=== PATIENT | female | born 1950 | race Caucasian/White ===

== ENCOUNTER 2017-05-03 13:39 | Emergency (ER) | payer MEDICAID, MEDICARE ==
[~2017-05-03] VITALS: Ht 154.9 cm; Wt 86.9 kg
[~2017-05-03 13:39] MED LIST: AMLO10TA2 PO; CEPH-460 PO; HYDR25TA5 PO; MACR100C2 PO; METO50TA PO; OMEP20TA93 PO; SYMB160A INH; ZOCO40TA PO
[2017-05-03 13:47] VITALS: BP 181/88; PULSE 113; RESP 22; TEMP 97.7; O2SAT 96
[2017-05-03] MEDS ORDERED: SODIUM CHLORIDE 0.9% FLUSH 10 ML FLUSH IVF PRN (14:15)
[2017-05-03] MEDS ORDERED: methylPREDNISolone SOD SUCC 125 MG/2 ML VIAL IV PUSH ONE (14:15)
[2017-05-03] MEDS ORDERED: MOBI15TA PO (14:21)
[2017-05-03 14:24] VITALS: RESP 18; O2SAT 94
[2017-05-03 14:25] VITALS: BP 194/92; PULSE 100; RESP 18; TEMP 98; O2SAT 94
[2017-05-03 14:44] LABS: HEMATOCRIT 45.5 % (35.0-46.0); MEAN CELL VOLUME 90.7 FL (80.0-100.0); MEAN CORPUSCULAR HEMOGLOBIN 30.5 PG (27.0-34.0); MEAN CORPUSCULAR HGB CONC 33.6 % (32.0-36.0); PLATELET COUNT 210 TH/MM3 (150-450); RED BLOOD COUNT 5.02 MIL/MM3 (4.00-5.30); RED CELL DISTRIBUTION WIDTH 12.1 % (11.6-17.2); WHITE BLOOD COUNT 14.9 TH/MM3 (4.0-11.0)
[2017-05-03 14:48] LABS: CHLORIDE 103 MEQ/L (98-107); SODIUM (NA) 135 MEQ/L (136-145)
[2017-05-03 14:53] LABS: ANION GAP 11 MEQ/L (5-15); BICARBONATE 21.2 MEQ/L (21.0-32.0); BLOOD UREA NITROGEN 15 MG/DL (7-18); MAGNESIUM 2.1 MG/DL (1.5-2.5)
[2017-05-03 14:55] LABS: ALT (GPT) 79 U/L (10-53)
[2017-05-03 14:56] LABS: AST (GOT) 111 U/L (15-37); GLOMERULAR FILTRATION RATE 58 ML/MIN (>89); HEMO FLAGS AUTO DIFF
[2017-05-03 14:57] LABS: TOTAL BILIRUBIN ADULT 0.8 MG/DL (0.2-1.0)
[2017-05-03 14:58] LABS: ALKALINE PHOSPHATASE 74 U/L (45-117)
--- NOTE | 2017-05-03 14:58 | RADRPT ---
EXAM DATE/TIME: 05/03/2017 14:27 [place] COMPARISON: CHEST PA & LAT, March 25, 2012, 16:50. INDICATIONS : Short of breath, chest pains MEDICAL HISTORY : Chronic obstructive pulmonary disease. asthma SURGICAL HISTORY : None. ENCOUNTER: Initial ACUITY: 1 day PAIN SCORE: 8/10 LOCATION: Bilateral chest FINDINGS: PA and lateral views of the chest demonstrate the lungs to be symmetrically aerated without evidence of mass, infiltrate or effusion. The cardiomediastinal contours are unremarkable. Osseous structure s are intact. Surgical clips in the right upper abdominal quadrant are characteristic of prior cholec ystectomy. CONCLUSION: No acute cardiopulmonary process. Jeffry Huerta MD on May 03, 2017 at 14:56 Board Certified Radiologist. This report was verified electronically.
[2017-05-03] MEDS: RESP: ALBUTEROL 2.5 MG/IPRATROPIUM 0.5 MG NEB (SCH) INH (15:00)
--- NOTE | 2017-05-03 15:03 | PD ---
HPI Chief Complaint: Respiratory Symptoms Time Seen by Provider: 14:12 Travel History International Travel<30 days: No Contact w/Intl Traveler<30days: No Traveled to known affect area: No History of Present Illness HPI 67 y/o female presents with shortness of breath and general ill feeling with body aches like she has the flu. She states she got the flu shot recently and feels like it caused her symptoms. She denies any other specific complaints at this time. She states she uses her nebulizer 3 times a day usually and that's what she has been doing but she has not given her self one yet today cut she said it didn't help her yesterday. She states she came here given it was not helping. She feels worse when she moves around. She denies other modifying factors. Patient is a poor historian [facility] Past Medical History Arthritis: Yes Asthma: Yes Anxiety: Yes Depression: Yes Heart Rhythm Problems: No Cancer: No Cardiovascular Problems: Yes (htn on meds) High Cholesterol: Yes Chemotherapy: No Chest Pain: No Congestive Heart Failure: No COPD: Yes Diabetes: Yes (Prior to weight loss) Patient Takes Glucophage: No Diminished Hearing: No Endocrine: Yes Gastrointestinal Disorders: No GERD: Yes Genitourinary: No Hepatitis: No Hiatal Hernia: No Hypertension: Yes Immune Disorder: No Implanted Vascular Access Dvce: No Medical other: Yes (ARTHRITIS) Musculoskeletal: No Neurologic: No Psychiatric: No Reproductive: No Respiratory: Yes (asthma) Radiation Therapy: No Sleep Apnea: No Thyroid Disease: No Tetanus Vaccination: < 5 Years PNEUMOCCOCAL Vaccine (Year): 2 ?: Not Menopausal: Yes : 3 Para: 3 Miscarriage: 0 : 0 Past Surgical History Abdominal Surgery: Yes (CHOLECYSTECTOMY) Cholecystectomy: Yes Eye Surgery: Yes (CATARACTS) Genitourinary Surgery: Yes (STENT PLACED 1995) Gynecologic Surgery: Yes (HYSTERECTOMY) Hysterectomy: Yes Other Surgery: Yes (RIGHT WRIST) Social History Alcohol Use: No Tobacco Use: No (QUIT 30 YEARS AGO- SMOKED 1 PPD) Substance Use: No Allergies-Medications (Allergen,Severity, Reaction): Coded Allergies: hydromorphone (Unverified Allergy, Severe, ITCHING, 05/03/17) latex (Unverified Allergy, Severe, RASH, 05/03/17) thiopental (Unverified Allergy, Severe, Swelling, 05/03/17) acetaminophen (Unverified Allergy, Intermediate, itching, 05/03/17) hydrocodone (Unverified Allergy, Intermediate, itching, 05/03/17) morphine (Unverified Allergy, Mild, ITCHING, 05/03/17) Reported Meds & Prescriptions Reported Meds & Active Scripts Active Duoneb (Ipratropium-Albuterol Neb) 0.5-2.5 Mg/3 Ml Neb 1 Nebule INH Q4HR NEB PRN Prednisone 50 Mg Tab 50 Mg PO DAILY 5 Days Reported Mobic (Meloxicam) 15 Mg Tab 15 Mg PO DAILY Symbicort Inh (Budesonide/Formoterol Fumarate) 160-4.5 Mcg/Act Aero 1 Puff INH Q12HR Hydrochlorothiazide 25 Mg Tab 25 Mg PO DAILY Metoprolol Tartrate 50 Mg Tab 50 Mg PO DAILY Zocor (Simvastatin) 40 Mg Tab 40 Mg PO DAILY Amlodipine (Amlodipine Besylate) 10 Mg Tab 10 Mg PO DAILY Omeprazole 20 Mg Tab 20 Mg PO DAILY Review of Systems ROS Limitations: Poor Historian Except as stated in HPI: all other systems reviewed are Neg Physical Exam Exam Limitations: Poor Historian Narrative GENERAL: Well-nourished, well-developed patient. SKIN: Warm and dry. HEAD: Normocephalic and atraumatic. EYES: No injection or drainage. ENT: No nasal drainage noted. NECK: Supple, trachea midline. CARDIOVASCULAR: Regular rate and rhythm RESPIRATORY: Expiratory wheezing bilaterally. No accessory muscle use. GASTROINTESTINAL: Abdomen soft, non-tender, nondistended. NEUROLOGICAL: Awake and alert. Moves all extremities and sensory grossly within normal limits. Normal speech. Data Data Last Documented VS Vital Signs Date Time Temp Pulse Resp B/P (MAP) Pulse Ox O2 Delivery O2 Flow Rate FiO2 05/03/17 16:25 115 18 184/99 (127) 96 05/03/17 15:20 21 05/03/17 14:25 98.0 Room Air heart rate at discharge 99 Orders Orders Chest, Pa & Lat (05/03/17 ) Complete Blood Count With Diff (05/03/17 14:15) Comprehensive Metabolic Panel (05/03/17 14:15) Act Partial Throm Time (Ptt) (05/03/17 14:15) Prothrombin Time / Inr (Pt) (05/03/17 14:15) Magnesium (Mg) (05/03/17 14:15) Influenzae A/B Antigen (05/03/17 14:15) Iv Access Insert/Monitor (05/03/17 14:15) Ecg Monitoring (05/03/17 14:15) Oximetry (05/03/17 14:15) Sodium Chloride 0.9% Flush (Ns Flush) (05/03/17 14:15) Methylprednisolone So Succ Inj (Solumedr (05/03/17 14:15) Albuterol-Ipratropium Neb (Duoneb Neb) (05/03/17 14:15) Lactic Acid Sepsis Protocol (05/03/17 15:20) Blood Culture (05/03/17 15:20) Sodium Chlor 0.9% 1000 Ml Inj (Ns 1000 M (05/03/17 15:30) Ed Discharge Order (05/03/17 16:17) Labs Laboratory Tests Test 05/03/17 14:20 05/03/17 14:50 05/03/17 15:20 White Blood Count 14.9 TH/MM3 Red Blood Count 5.02 MIL/MM3 Hemoglobin 15.3 GM/DL Hematocrit 45.5 % Mean Corpuscular Volume 90.7 FL Mean Corpuscular Hemoglobin 30.5 PG Mean Corpuscular Hemoglobin Concent 33.6 % Red Cell Distribution Width 12.1 % Platelet Count 210 TH/MM3 Mean Platelet Volume 9.5 FL CBC Comment AUTO DIFF Differential Total Cells Counted 100 Neutrophils % (Manual) 36 % Lymphocytes % 49 % Monocytes % 14 % Eosinophils % 1 % Neutrophils # (Manual) 5.4 TH/MM3 Differential Comment FINAL DIFF MANUAL Platelet Estimate NORMAL Platelet Morphology Comment NORMAL Blood Urea Nitrogen 15 MG/DL Creatinine 0.96 MG/DL Random Glucose 126 MG/DL Total Protein 8.4 GM/DL Albumin 4.4 GM/DL Calcium Level 9.2 MG/DL Magnesium Level 2.1 MG/DL Alkaline Phosphatase 74 U/L Aspartate Amino Transf (AST/SGOT) 111 U/L Alanine Aminotransferase (ALT/SGPT) 79 U/L Total Bilirubin 0.8 MG/DL Sodium Level 135 MEQ/L Potassium Level 4.6 MEQ/L Chloride Level 103 MEQ/L Carbon Dioxide Level 21.2 MEQ/L Anion Gap 11 MEQ/L Estimat Glomerular Filtration Rate 58 ML/MIN Prothrombin Time 10.8 SEC Prothromb Time International Ratio 1.0 RATIO Activated Partial Thromboplast Time 26.8 SEC Lactic Acid Level 1.4 mmol/L MDM Medical Decision Making Medical Screen Exam Complete: Yes Emergency Medical Condition: Yes Medical Record Reviewed: Yes (past history confirmed) Interpretation(s) CBC & BMP Diagram 05/03/17 14:20 Total Protein 8.4 H, Albumin 4.4, Calcium Level 9.2, Magnesium Level 2.1, Alkaline Phosphatase 74, Aspartate Amino Transf (AST/SGOT) 111 H, Alanine Aminotransferase (ALT/SGPT) 79 H, Total Bilirubin 0.8 Last 24 hours Impressions Chest X-Ray 05/03/17 0000 Signed Impressions: Service Date/Time: Friday, May 03, 2017 14:27 - CONCLUSION: No acute cardiopulmonary process. Jeffry Huerta MD Differential Diagnosis COPD, pneumothorax, pneumonia, URI, renal failure Narrative Course Will check blood work, chest x-ray and influenza and reevaluate after DuoNeb's and Solu-Medrol Patient has mild leukocytosis with predominant lymphocytes, lactate is normal, other blood work without emergent findings, chest x-ray without signs of pneumonia, patient has improved aeration with only faint wheezing after breathing treatments here.Patient denies any new complaints and states that they are feeling better. Patient happy with care, all questions answered. Patient knows that follow up is incumbent on them and to return to the emergency room immediately if new or worsening symptoms develop. Patient given strict return precautions, vitals reviewed and are normal, 97% on room air, agrees to further workup as an outpatient. Diagnosis Primary Impression: COPD exacerbation Patient Instructions: General Instructions Additional Instructions: return as needed, DuoNeb nebulizer treatment every 4 hours as needed at home, follow with primary Friday, Tylenol as needed for pain, keep blood pressure log Med/Other Pt SpecificInfo: Prescription(s) given Scripts Ipratropium-Albuterol Neb (Duoneb) 0.5-2.5 Mg/3 Ml Neb 1 NEBULE INH Q4HR NEB Y for WHEEZING, #180 NEBULE 0 Refills Prov: Xiao Doran MD 05/03/17 Prednisone (Prednisone) 50 Mg Tab 50 MG PO DAILY for 5 Days, #5 TAB 0 Refills Prov: Xiao Doran MD 05/03/17 Disposition: 01 DISCHARGE HOME Condition: Stable Xiao Doran MD May 03, 2017 15:03
[2017-05-03 15:13] LABS: POTASSIUM 4.6 MEQ/L (3.5-5.1)
[2017-05-03 15:20] VITALS: O2SAT 95
[2017-05-03 15:23] LABS: EOSINOPHILS 1 % (0-4); NEUTROPHIL # MANUAL DIFF 5.4 TH/MM3 (1.8-7.7); PLATELET ESTIMATE SMEAR NORMAL (NORMAL); PLATELET MORPHOLOGY NORMAL (NORMAL); POLYS (SEG NEUTROPHILS) 36 % (16-70); WBC DIFF SAMPLE 100
[2017-05-03 15:24] LABS: SCAN/DIFF FINAL DIFF MANUAL
[2017-05-03] MEDS ORDERED: SODIUM CHLOR 0.9% 1000 ML INJ 1,000 ML IV ONE (15:30)
[2017-05-03 16:01] LABS: APTT (PATIENT) 26.8 SEC (24.3-30.1); PROTHROMBIN TIME - PATIENT 10.8 SEC (9.8-11.6)
[2017-05-03] MEDS ORDERED: PRED50 PO (16:19)
[2017-05-03] MEDS ORDERED: IPRASOL INH (16:19)
[2017-05-03 16:25] VITALS: BP 184/99
== END 2017-05-03 16:44 | disposition home or self-care (01) ==
LOC: PHED 13:39
DX: J44.1 Chronic obstructive pulmonary disease with (acute) exacerbation (principal); D72.829 Elevated white blood cell count, unspecified; R53.81 Other malaise; M79.1 Myalgia; E11.9 Type 2 diabetes mellitus without complications; I10 Essential (primary) hypertension; E78.00 Pure hypercholesterolemia, unspecified; Z79.899 Other long term (current) drug therapy; Z87.39 Personal history of other diseases of the musculoskeletal system and connective tissue; Z87.09 Personal history of other diseases of the respiratory system; Z86.59 Personal history of other mental and behavioral disorders; Z86.79 Personal history of other diseases of the circulatory system; Z87.19 Personal history of other diseases of the digestive system
CPT/HCPCS: 71020; 80053; 83605; 83735; 85007; 85027; 85610; 85730; 87040; 87804; 94640; 94664; 96374; 99285; J2930; J7030

== ENCOUNTER 2017-10-25 11:42 | Emergency (ER) | payer MEDICARE, MEDICAID ==
[~2017-10-25] VITALS: Ht 154.9 cm; Wt 85.0 kg
[~2017-10-25 11:42] MED LIST changes: -CEPH-460 PO; +IPRASOL INH; -MACR100C2 PO; +MOBI15TA PO; +PRED50 PO
[2017-10-25 11:51] VITALS: BP 153/71; PULSE 72; RESP 18; TEMP 97.8; O2SAT 97
--- NOTE | 2017-10-25 12:07 | PD ---
HPI Chief Complaint: Skin Problem Time Seen by Provider: 11:56 Travel History International Travel<30 days: No Contact w/Intl Traveler<30days: No Traveled to known affect area: No History of Present Illness HPI 67-year-old female presents to the emergency department for evaluation of itchy skin rash to her bilateral arms and legs as well as her buttocks. Patient states this started 1 week ago. No difficulty breathing or swallowing. No pain. Patient denies any new detergents, lotions, creams, body washes. She states that she was taking Lortab which made her itch, but she is not currently taking it. She has been trying Benadryl [id number] without improvement. No alleviating or exacerbating factors. Mild severity. PFSH Past Medical History Arthritis: Yes Asthma: Yes Anxiety: Yes Depression: Yes Heart Rhythm Problems: No Cancer: No Cardiovascular Problems: Yes (htn on meds) High Cholesterol: Yes Chemotherapy: No Chest Pain: No Congestive Heart Failure: No COPD: Yes Diabetes: Yes (Prior to weight loss) Diminished Hearing: No Endocrine: Yes Gastrointestinal Disorders: No GERD: Yes Genitourinary: No Hepatitis: No Hiatal Hernia: No Hypertension: Yes Immune Disorder: No Implanted Vascular Access Dvce: No Musculoskeletal: No Neurologic: No Psychiatric: No Reproductive: No Respiratory: Yes (asthma) Radiation Therapy: No Sleep Apnea: No Thyroid Disease: No PNEUMOCCOCAL Vaccine (Year): 2 ?: Not Menopausal: Yes : 3 Para: 3 Miscarriage: 0 : 0 Past Surgical History Abdominal Surgery: Yes (CHOLECYSTECTOMY) Cholecystectomy: Yes Eye Surgery: Yes (CATARACTS) Genitourinary Surgery: Yes (STENT PLACED 1995) Gynecologic Surgery: Yes (HYSTERECTOMY) Hysterectomy: Yes Other Surgery: Yes (RIGHT WRIST) Social History Alcohol Use: No Tobacco Use: No (QUIT 30 YEARS AGO- SMOKED 1 PPD) Substance Use: No Allergies-Medications (Allergen,Severity, Reaction): Coded Allergies: hydromorphone (Unverified Allergy, Severe, ITCHING, 10/25/17) latex (Unverified Allergy, Severe, RASH, 10/25/17) thiopental (Unverified Allergy, Severe, Swelling, 10/25/17) acetaminophen (Unverified Allergy, Intermediate, itching, 10/25/17) hydrocodone (Unverified Allergy, Intermediate, itching, 10/25/17) morphine (Unverified Allergy, Mild, ITCHING, 10/25/17) Reported Meds & Prescriptions Reported Meds & Active Scripts Active Duoneb (Ipratropium-Albuterol Neb) 0.5-2.5 Mg/3 Ml Neb 1 Nebule INH Q4HR NEB PRN Prednisone 50 Mg Tab 50 Mg PO DAILY 5 Days Reported Mobic (Meloxicam) 15 Mg Tab 15 Mg PO DAILY Symbicort Inh (Budesonide/Formoterol Fumarate) 160-4.5 Mcg/Act Aero 1 Puff INH Q12HR Hydrochlorothiazide 25 Mg Tab 25 Mg PO DAILY Metoprolol Tartrate 50 Mg Tab 50 Mg PO DAILY Zocor (Simvastatin) 40 Mg Tab 40 Mg PO DAILY Amlodipine (Amlodipine Besylate) 10 Mg Tab 10 Mg PO DAILY Omeprazole 20 Mg Tab 20 Mg PO DAILY Review of Systems Except as stated in HPI: all other systems reviewed are Neg Physical Exam Narrative GENERAL: Well-nourished, well-developed female patient, ambulatory. Afebrile. SKIN: Focused skin assessment warm/dry. Patient has erythematous patches to her bilateral upper and lower extremities HEAD: Normocephalic. Atraumatic ENT: Mucosa pink and moist. No erythema or exudates. No uvular edema. No uvular , palatal, or tonsillar deviation. Airway patent. Nasal turbinates appear normal without nasal blood, purulent drainage or septal hematoma. Bilateral tympanic membranes clear without erythema or perforation. EYES: No scleral icterus. No injection or drainage. NECK: Supple, trachea midline. No JVD or lymphadenopathy. CARDIOVASCULAR: Regular rate and rhythm without murmurs, gallops, or rubs. RESPIRATORY: Breath sounds equal bilaterally. No accessory muscle use. Lung sounds are clear to auscultation throughout. GASTROINTESTINAL: Abdomen soft, non-tender, nondistended. MUSCULOSKELETAL: No cyanosis, or edema. BACK: Nontender without obvious deformity. No CVA tenderness. Data Data Last Documented VS Vital Signs Date Time Temp Pulse Resp B/P (MAP) Pulse Ox O2 Delivery O2 Flow Rate FiO2 10/25/17 11:51 97.8 72 18 153/71 (98) 97 Orders Orders Dexamethasone Inj (Decadron Inj) (10/25/17 12:15) Diphenhydramine Inj (Benadryl Inj) (10/25/17 12:15) Famotidine (Pepcid) (10/25/17 12:15) [facility] Medical Decision Making Medical Screen Exam Complete: Yes Emergency Medical Condition: Yes Medical Record Reviewed: Yes Differential Diagnosis Allergic reaction versus urticaria versus contact dermatitis Narrative Course 67-year-old female presents to the emergency department for evaluation of itchy skin rash for 1 week. She does appear well on exam. Patient is given dexamethasone 8 mg IM, Benadryl 25 mg IM, Pepcid 20 mg p.o. Patient will be discharged with a prescription for prednisone, Zantac. She is instructed to continue Benadryl [id number] as needed. She is to follow-up with her primary care physician return here for any acute worsening of symptoms. The patient was discharged in stable condition with instructions, including return instructions and follow up instructions. Diagnosis Primary Impression: Urticaria Referrals: Primary Care Physician call for appointment Patient Instructions: General Instructions, Urticaria (ED) Additional Instructions: Take prednisone as directed. Start this tomorrow. Take Pepcid as directed. [id number] Benadryl 25-50 mg every 6-8 hours as needed for itching Follow-up with a primary care physician. Return to the emergency department for any acute worsening of symptoms. Med/Other Pt SpecificInfo: Prescription(s) given Scripts Famotidine (Pepcid) 20 Mg Tab 20 MG PO BID for 5 Days, #10 TAB 0 Refills Prov: Abida Arreola 10/25/17 Prednisone (Prednisone) 20 Mg Tab 40 MG PO DAILY, #10 TAB 0 Refills Take 40 mg (2 tablets) daily for 5 days Prov: Abida Arreola 10/25/17 Disposition: 01 DISCHARGE HOME Condition: Stable Abida Arreola October 25, 2017 12:07
[2017-10-25] MEDS ORDERED: PRED20 PO (12:10)
[2017-10-25] MEDS ORDERED: FAMO1TAB37 PO (12:10)
[2017-10-25] MEDS ORDERED: FAMOTIDINE 20 MG TAB PO ONE (12:15)
[2017-10-25] MEDS ORDERED: diphenhydrAMINE HCL 50 MG/ML VIAL IM ONE ×2 (12:15)
[2017-10-25] MEDS ORDERED: DEXAMETHASONE SOD PHOS 4 MG/ML VIAL IM ONE (12:15)
== END 2017-10-25 12:24 | disposition home or self-care (01) ==
LOC: PHEFT 11:42
DX: L50.9 Urticaria, unspecified (principal); E78.00 Pure hypercholesterolemia, unspecified; F32.9 Major depressive disorder, single episode, unspecified; F41.9 Anxiety disorder, unspecified; I10 Essential (primary) hypertension; J44.9 Chronic obstructive pulmonary disease, unspecified; K21.9 Gastro-esophageal reflux disease without esophagitis; Z87.891 Personal history of nicotine dependence
CPT/HCPCS: 96372; 99283; J1100; J1200

== ENCOUNTER 2018-08-06 03:08 | Inpatient (IN) ==
[2018-08-06] MEDS ORDERED: Famotidine PF Inj 20 MG/2 ML Vial IV.PUSH ONE (03:24)
[2018-08-06] MEDS ORDERED: Sod Chloride 0.9% Inj 1,000 ML IV.SIG ONE (03:24)
--- NOTE | 2018-08-06 03:30 | ED ---
HPI General Chief Complaint: Abdominal Pain Stated Complaint: abd burning Time Seen by Provider: 08/06/18 03:16 Source: patient Mode of arrival: ambulatory Limitations: no limitations History of Present Illness HPI narrative: Patient is a 68-year-old female with history of hypertension, hyperlipidemia, COPD, presents to the emergency with complaints of abdominal pain. Patient reports that she was recently sick with a bacterial infection and completed a full course of antibiotics as well as steroids 3 days ago. Patient reports tonight, she woke up from sleep around 2 AM with abdominal pain. Patient reports that it felt like her whole abdomen was burning. Patient reports that she felt diaphoretic and felt nauseous and did vomit with her symptoms. Patient reports that this symptoms lasted for about 10 minutes and then resolve on its own. Reports that shortly thereafter, she had return of symptoms. Patient denies any fevers or chills, reports that she is having diarrhea -diarrhea started after she was started on the steroid. Reports that nothing makes the pain better or worse MD complaint: Reports abdominal pain Related Data Home Medications Medication Instructions Recorded Confirmed aspirin 162 mg PO DAILY 08/06/18 08/06/18 budesonide-formoterol [Symbicort] 2 puff INHALATION BID 08/06/18 08/06/18 hydroxyzine HCl 25 mg PO TID 08/06/18 08/06/18 metoprolol tartrate 50 mg PO DAILY 08/06/18 08/06/18 simvastatin 40 mg PO QPM 08/06/18 08/06/18 Allergies Allergy/AdvReac Type Severity Reaction Status Date / Time hydromorphone Allergy Severe ITCHING Verified 08/06/18 03:24 latex Allergy Severe RASH Verified 08/06/18 03:24 thiopental Allergy Severe Swelling Verified 08/06/18 03:24 acetaminophen Allergy Intermediate itching Verified 08/06/18 03:24 hydrocodone Allergy Intermediate itching Verified 08/06/18 03:24 morphine Allergy Mild ITCHING Verified 08/06/18 03:24 Review of Systems ROS: all other systems reviewed are negative PMFSH History History Provided By: Patient Medical History Medical History Hx of hysterectomy (Acute) COPD (chronic obstructive pulmonary disease) (Acute) Hyperlipidemia (Acute) Hypertension (Acute) Surgical History Surgical History Hx of cholecystectomy (Acute) Hx of right knee surgery (Acute) Social History Social History (Reviewed 08/06/18 @ 03:28 by Rianna Zazueta Substance History: No History of Abuse Smoking Status: Never smoker How Often Do You Have a Drink Containing Alcohol: Monthly or less Recent Travel in [facility] within the Last 8 Weeks: No Recent Out of Country Travel within the Last 8 Weeks: No Exam Narrative Exam Narrative: GENERAL: Moderate distress SKIN: Focused skin assessment warm/dry. HEAD: Atraumatic. Normocephalic. EYES: Pupils equal and round. No scleral icterus. No injection or drainage. ENT: No nasal bleeding or discharge. Mucous membranes pink and moist. NECK: Trachea midline. No JVD. CARDIOVASCULAR: Regular rate and rhythm. No murmur appreciated. RESPIRATORY: No accessory muscle use. Clear to auscultation. Breath sounds equal bilaterally. GASTROINTESTINAL: Abdomen soft, Diffuse abdomen tenderness with guarding on exam , nondistended. Hepatic and splenic margins not palpable. MUSCULOSKELETAL: No obvious deformities. No clubbing. No cyanosis. No edema. NEUROLOGICAL: Awake and alert. No obvious cranial nerve deficits. Motor grossly within normal limits. Normal speech. PSYCHIATRIC: Appropriate mood and affect; insight and judgment normal. Course Initial Documented Vital Signs Temperature 97.3 F L 08/06/18 03:14 Pulse Rate 49 L 08/06/18 03:14 Respiratory Rate 18 08/06/18 03:14 Blood Pressure 154/69 H 08/06/18 03:14 Pulse Oximetry 98 08/06/18 03:14 Last Documented Vital Signs Temperature 97.3 F L 08/06/18 03:14 Pulse Rate 52 L 08/06/18 04:30 Respiratory Rate 18 08/06/18 04:30 Blood Pressure 134/64 08/06/18 04:30 Pulse Oximetry 96 08/06/18 04:30 Medical Decision Making [facility] Narrative Medical decision making narrative: During the course of the patients emergency department visit, the patients history, examination, and differential diagnosis were reviewed with the patient. The patient was placed on a environmental monitoring specialist with oximetry and frequent blood pressure monitoring. The patient had an IV access obtained and blood work sent for analysis. The patient was initially provided IVF as well as IV pepcid and IV zofran The patients laboratory studies were reviewed and remarkable for WBC 13.2, hemoglobin 16.2, hematocrit 40.5, platelets 229 Sodium 140, potassium 3.9, chloride 109, BUN 14, creatinine 0.84, glucose 107 Lactic acid 1.7 AST 160, ALT 141 Lipase 5397 Radiology studies were reviewed and remarkable for: CT of the abdomen pelvis with IV contrast shows a stable benign CT appearing of the abdomen and pelvis. The pancreas is unremarkable without mass of calcifications. Patient was reevaluated, results of studies were reviewed. Patient has history of a cholecystectomy in the past. Patient with acute pancreatitis. Patient is feeling much better after she was given a dose of IV Toradol, she still continues to feel uncomfortable. Plan to observe the hospital for acute pancreatitis. case reviewed with Dr. Colunga who accepts pt to service for observation Medical Screen Exam Complete: Yes Emergency Medical Condition: Yes Lab Data Lab results reviewed: Yes I reviewed the patient's lab results. Result diagrams: 08/06/18 03:30 08/06/18 03:30 Lab Results 08/06/18 08/06/18 08/06/18 Range/Units 03:30 03:30 03:30 CBC w Diff Slide review pending WBC 13.2 H (4.0-11.0) th/mm3 RBC 5.45 H (4.00-5.30) mil/mm3 Hgb 16.2 H (11.6-15.3) gm/dL Hct 48.5 H (35.0-46.0) % MCV 89.1 (80.0-100.0) fL MCH 29.8 (27.0-34.0) pg MCHC 33.4 (32.0-36.0) % RDW 12.2 (11.6-17.2) % Plt Count 229 (150-450) th/mm3 MPV 9.1 (7.0-11.0) fL Neut % (Auto) 41.1 (16.0-70.0) % Lymph % (Auto) 50.4 H (9.0-44.0) % [place] % (Auto) 5.9 (0.0-8.0) % Eos % (Auto) 1.1 (0.0-4.0) % Baso % (Auto) 1.5 (0.0-2.0) % Neut # (Auto) 5.4 (1.8-7.7) th/mm3 Lymph # (Auto) 6.7 H (1.0-4.8) th/mm3 [place] # (Auto) 0.8 (0.0-0.9) th/mm3 Eos # (Auto) 0.1 (0.0-0.4) th/mm3 Baso # (Auto) 0.2 (0.0-0.2) th/mm3 WBC Differential . Diff Scan Auto diff confirmed Differential Comment . PT 10.0 (9.8-11.6) sec INR 1.0 Ratio APTT 24.0 (23.4-31.7) sec Sodium 140 (136-145) meq/L Potassium 3.9 (3.5-5.1) meq/L Chloride 109 H (98-107) meq/L Carbon Dioxide 24.6 (21.0-32.0) meq/L Anion Gap 6 (5-15) meq/L BUN 14 (7-18) mg/dL Creatinine 0.84 (0.50-1.00) mg/dL Estimated GFR 68 L (>89) mL/min Random Glucose 107 H (74-106) mg/dL Lactic Acid (0.4-2.0) mmol/L Calcium 8.8 (8.5-10.1) mg/dL Magnesium 1.7 (1.5-2.5) mg/dL Total Bilirubin 0.5 (0.2-1.0) mg/dL AST 160 H (15-37) U/L ALT 141 H (10-53) U/L Alkaline Phosphatase 132 H (45-117) U/L Total Creatine Kinase 72 (26-192) U/L Troponin I Less than 0.02 L (0.02-0.05) ng/mL Total Protein 7.2 (6.4-8.2) g/dL Albumin 3.6 (3.4-5.0) g/dL Lipase 5397 H (73-393) U/L Urine Color (Yellw/Straw) Urine Clarity (Clear) Urine pH (5.0-8.5) Ur Specific [place] (1.002-1.035) Urine Protein (Neg-Trace) mg/dL Urine Glucose (UA) (Negative) mg/dL Urine Ketones (Negative) mg/dL Urine Occult Blood (Negative) Urine Nitrate (Negative) Urine Bilirubin (Negative) Urine Urobilinogen (Less than 2) mg/dL Ur Leukocyte Esterase (Negative) Urine RBC (0-3) /hpf Urine WBC (0-5) /hpf Urine WBC Clumps (None) Ur Squamous Epith Cells (0-5) /hpf Urine Bacteria (None) /hpf Micro UA Comment Ur Microscopic Review Urine Culture Comments 08/06/18 08/06/18 Range/Units 03:30 04:50 CBC w Diff WBC (4.0-11.0) th/mm3 RBC (4.00-5.30) mil/mm3 Hgb (11.6-15.3) gm/dL Hct (35.0-46.0) % MCV (80.0-100.0) fL MCH (27.0-34.0) pg MCHC (32.0-36.0) % RDW (11.6-17.2) % Plt Count (150-450) th/mm3 MPV (7.0-11.0) fL Neut % (Auto) (16.0-70.0) % Lymph % (Auto) (9.0-44.0) % [place] % (Auto) (0.0-8.0) % Eos % (Auto) (0.0-4.0) % Baso % (Auto) (0.0-2.0) % Neut # (Auto) (1.8-7.7) th/mm3 Lymph # (Auto) (1.0-4.8) th/mm3 [place] # (Auto) (0.0-0.9) th/mm3 Eos # (Auto) (0.0-0.4) th/mm3 Baso # (Auto) (0.0-0.2) th/mm3 WBC Differential Diff Scan Differential Comment PT (9.8-11.6) sec INR Ratio APTT (23.4-31.7) sec Sodium (136-145) meq/L Potassium (3.5-5.1) meq/L Chloride (98-107) meq/L Carbon Dioxide (21.0-32.0) meq/L Anion Gap (5-15) meq/L BUN (7-18) mg/dL Creatinine (0.50-1.00) mg/dL Estimated GFR (>89) mL/min Random Glucose (74-106) mg/dL Lactic Acid 1.7 (0.4-2.0) mmol/L Calcium (8.5-10.1) mg/dL Magnesium (1.5-2.5) mg/dL Total Bilirubin (0.2-1.0) mg/dL AST (15-37) U/L ALT (10-53) U/L Alkaline Phosphatase (45-117) U/L Total Creatine Kinase (26-192) U/L Troponin I (0.02-0.05) ng/mL Total Protein (6.4-8.2) g/dL Albumin (3.4-5.0) g/dL Lipase (73-393) U/L Urine Color Yellow (Yellw/Straw) Urine Clarity Clear (Clear) Urine pH 6.0 (5.0-8.5) Ur Specific [place] Less/equal 1.005 (1.002-1.035) Urine Protein Negative (Neg-Trace) mg/dL Urine Glucose (UA) Negative (Negative) mg/dL Urine Ketones Negative (Negative) mg/dL Urine Occult Blood Negative (Negative) Urine Nitrate Negative (Negative) Urine Bilirubin Negative (Negative) Urine Urobilinogen 0.2 (Less than 2) mg/dL Ur Leukocyte Esterase Moderate H (Negative) Urine RBC 0-3 (0-3) /hpf Urine WBC 9-20 H (0-5) /hpf Urine WBC Clumps Few H (None) Ur Squamous Epith Cells 0-5 (0-5) /hpf Urine Bacteria Few H (None) /hpf Micro UA Comment Culture indicated Ur Microscopic Review Microscopic reviewed Urine Culture Comments Culture indicated Imaging Data Attestation: I personally reviewed and interpreted this imaging study as follows : Radiologist's impression: Abdomen/Pelvis CT 08/06/18 03:24 CONCLUSION: Stable benign CT appearance of the abdomen or pelvis. Chest X-Ray 08/06/18 03:24 CONCLUSION: No acute disease ECG Data EKG Prior to Arrival: No Attestation: I personally reviewed and interpreted this ECG as follows: Interpretation: EKG at 0322 shows sinus bradycardia at 54 bpm, QT/QTc 441/427, no acute ST-T wave changes Discharge Plan Discharge Disposition Patient Disposition: ED Admit(ED Internal Use Only) Discharge Condition Condition: Fair Discharge Order Discharge Orders: ED Use Only Admit Order (Routine); Ordered 08/06/18 Ordered By: Rianna Rainey Discharge Details Diagnosis: Acute pancreatitis Physicians Team ED Provider: Rianna Rainey Primary Care Provider: Meagan,Dary Rxs /Orders / Referrals /Forms Prescriptions: No Action simvastatin 40 mg Tablet 40 mg PO QPM RF: 0 metoprolol tartrate 50 mg Tablet 50 mg PO DAILY RF: 0 aspirin 81 mg Tablet,Chewable 162 mg PO DAILY RF: 0 hydroxyzine HCl 25 mg Tablet 25 mg PO TID RF: 0 budesonide-formoterol [Symbicort] 160-4.5 mcg/actuation Hfa Aerosol Inhaler 2 puff INHALATION BID RF: 0 Status ED Status: With Doctor
--- NOTE | 2018-08-06 03:46 | XR ---
EXAM DATE: 08/06/2018 3:44 AM EST AGE/SEX: 68 years / Female INDICATIONS: Chest discomfort, abdominal pain. CLINICAL DATA: This is the patient's initial encounter. Patient reports that signs and symptoms have been present for 1 day and indicates a pain score of 0/10. MEDICAL/SURGICAL HISTORY: Chronic obstructive pulmonary disease. Asthma. None. COMPARISON: [facility], CHEST PA & LAT, 05/03/2017. . FINDINGS: A single AP view of the chest demonstrates the lungs to be symmetrically aerated without evidence of mass, infiltrate or effusion. The cardiomediastinal contours are unremarkable. Osseous structures a re intact. CONCLUSION: No acute disease Electronically signed by: Romero Tavares MD Board Certified Radiologist 08/06/2018 3:45 AM EST
[2018-08-06 04:01] LABS: Baso # (Auto) 0.2 th/mm3 (0.0-0.2); Baso % (Auto) 1.5 % (0.0-2.0); Eos # (Auto) 0.1 th/mm3 (0.0-0.4); Eos % (Auto) 1.1 % (0.0-4.0); Hematocrit 48.5 % (35.0-46.0); Hemoglobin 16.2 gm/dL (11.6-15.3); Lymph # (Auto) 6.7 th/mm3 (1.0-4.8); Lymph % (Auto) 50.4 % (9.0-44.0); Mean Corpuscular HGB Conc 33.4 % (32.0-36.0); Mean Corpuscular Hemoglobin 29.8 pg (27.0-34.0); Mean Corpuscular Volume 89.1 fL (80.0-100.0); Mean Platelet Volume 9.1 fL (7.0-11.0); Mono # (Auto) 0.8 th/mm3 (0.0-0.9); Mono % (Auto) 5.9 % (0.0-8.0); Neut # (Auto) 5.4 th/mm3 (1.8-7.7); Neut % (Auto) 41.1 % (16.0-70.0); Platelet Count 229 th/mm3 (150-450); Red Blood Count 5.45 mil/mm3 (4.00-5.30); Red Cell Distribution Width 12.2 % (11.6-17.2); White Blood Count 13.2 th/mm3 (4.0-11.0)
[2018-08-06 04:03] LABS: Chloride 109 meq/L (98-107); Potassium 3.9 meq/L (3.5-5.1); Sodium 140 meq/L (136-145)
[2018-08-06 04:06] LABS: Calcium 8.8 mg/dL (8.5-10.1)
[2018-08-06 04:07] LABS: Albumin 3.6 g/dL (3.4-5.0); Anion Gap 6 meq/L (5-15); Blood Urea Nitrogen 14 mg/dL (7-18); Carbon Dioxide 24.6 meq/L (21.0-32.0); Glucose,Random 107 mg/dL (74-106); Magnesium 1.7 mg/dL (1.5-2.5)
[2018-08-06 04:10] LABS: Alanine Aminotransferase 141 U/L (10-53); Aspartate Aminotransferase 160 U/L (15-37); Glomerular Filtration Rate 68 mL/min (>89)
[2018-08-06 04:12] LABS: Lipase 5397 U/L (73-393); Total Protein 7.2 g/dL (6.4-8.2)
[2018-08-06 04:13] LABS: Alkaline Phosphatase 132 U/L (45-117)
[2018-08-06 04:20] LABS: Creatine Kinase 72 U/L (26-192)
[2018-08-06] MEDS ORDERED: Ketorolac Inj 30 MG/ML (IVP) Vial IV.PUSH ONE (04:24)
--- NOTE | 2018-08-06 04:51 | CT ---
EXAM DATE: 08/06/2018 4:43 AM EST AGE/SEX: 68 years / Female INDICATIONS: Diffuse abdominal pain and burning. CLINICAL DATA: This is the patient's initial encounter. Patient reports that signs and symptoms have been present for 1 day and indicates a pain score of 8/10. MEDICAL/SURGICAL HISTORY: Chronic obstructive pulmonary disease. Hypertension. Hysterectomy. Cholecystectomy. Knee surgery. ORAL CONTRAST: No oral contrast ingested. RADIATION DOSE: 21.26 CTDI (mGy) COMPARISON: [facility], CT ABDOMEN & PELVIS W CONTRAST, 02/23/2013. . TECHNIQUE: Multiple contiguous axial images were obtained through the abdomen and pelvis following b olus infusion of 95 ml Omnipaque 350 (iohexol) nonionic water-soluble contrast as a single exam dos e. No oral contrast ingested. Using automated exposure control and adjustment of the mA and/or kV ac cording to patient size, radiation dose was kept as low as reasonably achievable to obtain optimal di agnostic quality images. DICOM format image data is available electronically for review and comparis on. FINDINGS: Lower Lungs: The visualized lower lungs are clear. Liver: Stable mild biliary ductal dilatation post previous cholecystectomy. No focal liver mass. Spleen: Homogeneous density without enlargement. Pancreas: Unremarkable without mass or calcification. Kidneys: Small bilateral renal cysts. No hydronephrosis or stone Adrenal Glands: Unremarkable. Aorta: The aorta and proximal iliac vessels are grossly unremarkable without aneurysmal dilation. Bowel/Mesentery: Small hiatal hernia. Distal colonic diverticulosis. No abnormal dilatation of bowel . No wall thickening or focal inflammatory changes. Abdominal Wall: Intact. Retroperitoneum: No evidence of adenopathy in the retrocrural, para-aortic, or deep pelvic regions. Bladder: Contours are smooth. Reproductive Organs: Uterus surgically absent. No evidence of pelvic mass or free fluid. Inguinal: The inguinal region is unremarkable without evidence of adenopathy. Bony Structures: Unremarkable. CONCLUSION: Stable benign CT appearance of the abdomen or pelvis. Electronically signed by: Romero Tavares MD Board Certified Radiologist 08/06/2018 4:49 AM EST
[2018-08-06 04:58] LABS: Bilirubin,Urine Negative (Negative); Clarity,Urine Clear (Clear); Color,Urine Yellow (Yellw/Straw); Glucose,Urine (UA) Negative (Negative); Leukocyte Esterase,Urine Moderate (Negative); Nitrite,Urine Negative (Negative); Specific Gravity,Urine Less/Equal 1.005 (1.002-1.035); Urobilinogen,Urine 0.2 mg/dL (Less than 2)
[2018-08-06 05:08] LABS: Bacteria,Urine Few /hpf; RBC,Urine 0-3 /hpf (0-3); Squamous Epithelial Cell,Urine 0-5 /hpf (0-5)
[2018-08-06] MEDS ORDERED: Acetaminophen 325 MG Tablet PO PRN (05:28)
[2018-08-06] MEDS ORDERED: Bisacodyl 10 MG Supp RECTAL PRN (05:28)
[2018-08-06] MEDS: Sod Chloride 0.9% Inj 1,000 ML IV.CONT SCH ×3 (05:54→22:04)
[2018-08-06] MEDS: Heparin - SQ 10,000 UNITS/ML Vial SQ SCH ×2 (05:55→16:34)
[2018-08-06] MEDS: Metoprolol Tartrate 50 MG Tablet PO SCH (09:24)
[2018-08-06] MEDS: Senna/Docusate Sodium 8.6/50 MG Tablet PO SCH ×2 (09:36→20:21)
--- NOTE | 2018-08-06 11:19 | P.HPIM ---
History of Present Illness Primary Care Physician: Dary Rhodes MD Chief Complaint: Abdominal pain History of Present Illness: 68-year-old female with known history of hypertension, hyperlipidemia, chronic obstructive pulmonary disease, asthma who presented to hospital because of abdominal pain, nausea and vomiting. Patient states that she has not been feeling well for the last few weeks. She did go to her primary medical doctor's office a couple weeks ago and was treated for upper respiratory infection with antibiotics which she finished on Friday of this week. Patient still did not feel too well and yesterday she laid around in bed and did not eat anything all day. She woke up at approximately 145 this morning with sudden burning type pain in her stomach. She got up and the pain did go away so she laid back down and the pain came back where she started developing nausea and had dry heaves. She did not have any food to vomit because she did not eat anything for 24 hours. She is only been drinking liquids for 24 hours. Patient had workup done in emergency department and was felt that the patient needed to be admitted for further evaluation and management. Diagnosis (1) Elevated lipase: (2) Leukocytosis: (3) Abdominal pain: (4) Nausea & vomiting: (5) Elevated liver enzymes: Inpatient Certification Inpatient Certification: I certify that the inpatient services were ordered in accordance with Medicare regulations governing the order. This includes certification that hospital inpatient services are reasonable and necessary and in the case of services not specified as inpatient-only under 42 CFR 419.22(n), that they are appropriately provided as inpatient services in accordance to with the 2-midnight benchmark under 43 CFR 412.3(e) Estimated Total Length of Stay (Days): 3 Plans for Post Hospital Care: Home Review of Systems Review of Systems: all other systems reviewed are negative Gastrointestinal: Reports abdominal pain, Reports nausea and Reports vomiting PMF Medical History Medical History Asthma (Acute) History of tobacco use (Acute) Hx of hysterectomy (Acute) COPD (chronic obstructive pulmonary disease) (Acute) Hyperlipidemia (Acute) Hypertension (Acute) Surgical History Surgical History History of shoulder surgery (Acute) Hx of cholecystectomy (Acute) Hx of right knee surgery (Acute) Status post wrist surgery (Acute) Social History Social History Substance History: No History of Abuse Second Hand Smoke Exposure: No Smoking Status: Former smoker Tobacco Type: Cigarettes Number of Pack-Years (if former smoker): 12 How Often Do You Have a Drink Containing Alcohol: Never Recent Travel in [facility] within the Last 8 Weeks: No Recent Out of Country Travel within the Last 8 Weeks: No Immunization History Tetanus Immunization: Unsure Hx Influenza Vaccine This Season: Yes Medications and Allergies Allergies Allergy/AdvReac Type Severity Reaction Status Date / Time hydromorphone Allergy Severe ITCHING Verified 08/06/18 03:24 latex Allergy Severe RASH Verified 08/06/18 03:24 thiopental Allergy Severe Swelling Verified 08/06/18 03:24 acetaminophen Allergy Intermediate itching Verified 08/06/18 03:24 hydrocodone Allergy Intermediate itching Verified 08/06/18 03:24 morphine Allergy Mild ITCHING Verified 08/06/18 03:24 Home Medications Medication Instructions Recorded Confirmed Type aspirin 162 mg PO DAILY 08/06/18 08/06/18 History budesonide-formoterol [Symbicort] 2 puff INHALATION BID 08/06/18 08/06/18 History hydroxyzine HCl 25 mg PO TID 08/06/18 08/06/18 History metoprolol tartrate 50 mg PO DAILY 08/06/18 08/06/18 History simvastatin 40 mg PO QPM 08/06/18 08/06/18 History Active Medications: Active Medications Acetaminophen (Tylenol) 650 mg PO Q4H PRN PRN Reason: Temp > 100.4 Al Hydroxide/Mg Hydroxide (Milk Of Magnesia Liq) 30 ml PO Q12H PRN PRN Reason: Mild Constipation Bisacodyl (Dulcolax Supp) 10 mg RECTAL DAILY PRN PRN Reason: SEVERE CONSITIPATION Heparin Sodium (Porcine) (Heparin Inj) 5,000 units SQ Q12H [facility] Last Admin: 08/06/18 05:55 Dose: 5,000 units Sodium Chloride (Ns Inj) 1,000 mls @ 125 mls/hr IV.CONT .Q8H [facility] Last Infusion: 08/06/18 06:40 Dose: 125 mls/hr Lactulose (Lactulose Liq) 30 ml PO DAILY PRN PRN Reason: SEVERE CONSITIPATION Metoprolol Tartrate (Lopressor) 50 mg PO DAILY [facility] Last Admin: 08/06/18 09:24 Dose: Not Given Ondansetron HCl (Zofran Inj) 4 mg IV.PUSH Q6H PRN PRN Reason: NAUSEA OR VOMITING Senna/Docusate Sodium (Hoda-Colace) 1 tab PO BID [facility] Last Admin: 08/06/18 09:36 Dose: Not Given Sennosides (Senokot) 17.2 mg PO Q12H PRN PRN Reason: Moderate Constipation Sodium Chloride (Ns Flush) 2 ml IV.FLUSH PRN PRN PRN Reason: FLUSH AFTER USING IV ACCESS Sodium Chloride (Ns Flush) 2 ml IV.FLUSH BID [facility] Last Admin: 08/06/18 09:24 Dose: Not Given Sodium Chloride (Ns Flush) 2 ml IV.FLUSH PRN PRN PRN Reason: FLUSH AFTER USING IV ACCESS Physical Exam Vital signs: Vital Signs 08/06/18 03:14 08/06/18 03:31 08/06/18 04:30 Temperature 97.3 F L Pulse Rate 49 L 51 L 52 L Respiratory Rate 18 18 Blood Pressure 154/69 H 134/64 Pulse Oximetry 98 98 96 08/06/18 05:59 08/06/18 08:00 Temperature 96.8 F L Pulse Rate 52 L 45 L Respiratory Rate 18 16 Blood Pressure 136/66 126/57 L Pulse Oximetry 96 95 Intake & Output 08/05/18 08/06/18 08/06/18 18:59 06:59 18:59 Intake Total 1000 / 1000 Balance 1000 / 1000 Weight 77.9 kg Intake: IV 1000 / 1000 NS Inj 1,000 ML @ Wide Open IV. 1000 / 1000 SIG BOLUS ONE Rx#:[id number] Narrative: GENERAL: Well-developed, well-nourished, in no acute distress. alert and orientated HEENT: Head is normocephalic without any lesions or masses noted. Facial features are symmetric. Eyes: Pupils equal round reactive to light. Extraocular muscles are intact. Conjunctivae were clear. Oropharyngeal: Pharynx without any erythema edema. Tongue is midline without deviation. Buccal mucosa is moist without any masses or lesions NECK: Supple without any masses. Trachea midline no deviation. No JVD, no bruits are appreciated CARDIAC: Regular rhythm, regular rate. S1/S2 are heard. No murmurs gallops or rubs. LUNGS: Clear to auscultation bilaterally. No wheeze, rhonchi or rales. No use of accessory muscles on inspiration or expiration. ABDOMEN: Soft, nontender. Nondistended. Bowel sounds heard in all 4 quadrants. No organomegaly or masses. Negative rebound, negative guarding EXTREMITIES: No edema, pulses are equal bilaterally. No cyanosis or clubbing NEUROLOGY: Mood and affect appear appropriate. Cranial nerves II through XII grossly intact. Muscle strength 5/5 in upper and lower extremities bilaterally. Deep tendon reflexes are 2+ in upper and lower extremities bilaterally. Results Labs CBC & Chem 7: 08/06/18 11:35 08/06/18 11:35 Imaging Impressions Abdomen/Pelvis CT 08/06/18 03:24 CONCLUSION: Stable benign CT appearance of the abdomen or pelvis. Chest X-Ray 08/06/18 03:24 CONCLUSION: No acute disease Caprini VTE Risk Assessment Caprini VTE Risk Assessment: Moderate/High Risk (score >= 2) Caprini Risk Assessment Model: Point Value = 1 Point Value = 2 Point Value = 3 Point Value = 5 Age 41-60 Minor surgery BMI > 25 kg/m2 Swollen legs Varicose veins or History of unexplained or recurrent spontaneous Oral contraceptives or hormone replacement Sepsis (< 1 month) Serious lung disease, including pneumonia (< 1 month) Abnormal pulmonary function Acute myocardial infarction Congestive heart failure (< 1 month) History of inflammatory bowel disease Medical patient at bed rest Age 61-74 Arthroscopic surgery Major open surgery (> 45 min) Laparoscopic surgery (> 45 min) Malignancy Confined to bed (> 72 hours) Immobilizing plaster cast Central venous access Age >= 75 History of VTE Family history of VTE Factor V Leiden Prothrombin [id number] Lupus anticoagulant Anticardiolipin antibodies Elevated serum homocysteine Heparin-induced thrombocytopenia Other congenital or acquired thrombophilia Stroke (< 1 month) Elective arthroplasty Hip, pelvis, or leg fracture Acute spinal cord injury (< 1 month) Prophylaxis Regimen: Total Risk Factor Score Risk Level Prophylaxis Regimen 0-1 Low Early ambulation 2 Moderate Order ONE of the following: *Sequential Compression Device (SCD) *Heparin 5000 units SQ BID 3-4 Higher Order ONE of the following medications: *Heparin 5000 units SQ TID *Enoxaparin/Lovenox 40 mg SQ daily (WT < 150 kg, CrCl > 30 mL/min) *Enoxaparin/Lovenox 30 mg SQ daily (WT < 150 kg, CrCl > 10-29 mL/min) *Enoxaparin/Lovenox 30 mg SQ BID (WT < 150 kg, CrCl > 30 mL/min) AND/OR *Sequential Compression Device (SCD) 5 or more Highest Order ONE of the following medications: *Heparin 5000 units SQ TID (Preferred with Epidurals) *Enoxaparin/Lovenox 40 mg SQ daily (WT < 150 kg, CrCl > 30 mL/min) *Enoxaparin/Lovenox 30 mg SQ daily (WT < 150 kg, CrCl > 10-29 mL/min) *Enoxaparin/Lovenox 30 mg SQ BID (WT < 150 kg, CrCl > 30 mL/min) AND *Sequential Compression Device (SCD) Assessment and Plan (1) Elevated lipase: Code(s): R74.8 - Abnormal levels of other serum enzymes Status: Acute (2) Leukocytosis: Code(s): D72.829 - Elevated white blood cell count, unspecified Status: Acute (3) Abdominal pain: Code(s): R10.9 - Unspecified abdominal pain Status: Acute (4) Nausea & vomiting: Code(s): R11.2 - Nausea with vomiting, unspecified Status: Acute (5) Elevated liver enzymes: Code(s): R74.8 - Abnormal levels of other serum enzymes Status: Acute Plan Abdominal pain with elevated lipase, elevated liver enzymes. Possible pancreatitis CT scan was performed which did not indicate any acute abnormality Patient does have history of cholecystectomy Patient is n.p.o., however her appetite has resumed she is asking for diet. Start clear liquid diet Continue IV fluid and pain control Continue to trend liver enzymes and lipase level Leukocytosis Could be secondary to dehydration, poor p.o. intake and possible infection Continue monitor CBC Hypertension, hyperlipidemia Continue home medications DVT prevention Subcutaneous heparin Discussed Condition With: Patient, nursing staff, Dr. Landon H&P: Quality VTE Deep Vein Thrombosis/Pulmonary Embolism Present on Admission: No
[2018-08-06 11:42] LABS: Baso # (Auto) 0.1 th/mm3 (0.0-0.2); Baso % (Auto) 1.1 % (0.0-2.0); Eos # (Auto) 0.1 th/mm3 (0.0-0.4); Eos % (Auto) 0.8 % (0.0-4.0); Hemoglobin 14.1 gm/dL (11.6-15.3); Lymph # (Auto) 3.8 th/mm3 (1.0-4.8); Lymph % (Auto) 53.7 % (9.0-44.0); Mean Corpuscular HGB Conc 34.4 % (32.0-36.0); Mean Corpuscular Hemoglobin 30.5 pg (27.0-34.0); Mean Corpuscular Volume 88.5 fL (80.0-100.0); Mean Platelet Volume 8.3 fL (7.0-11.0); Mono # (Auto) 0.5 th/mm3 (0.0-0.9); Mono % (Auto) 6.9 % (0.0-8.0); Neut # (Auto) 2.7 th/mm3 (1.8-7.7); Neut % (Auto) 37.5 % (16.0-70.0); Platelet Count 196 th/mm3 (150-450); Red Blood Count 4.63 mil/mm3 (4.00-5.30); Red Cell Distribution Width 12.1 % (11.6-17.2); White Blood Count 7.2 th/mm3 (4.0-11.0)
[2018-08-06 11:48] LABS: Chloride 109 meq/L (98-107); Potassium 3.5 meq/L (3.5-5.1); Sodium 140 meq/L (136-145)
--- NOTE | 2018-08-06 11:51 | ECG ---
Date Performed: 08/06/2018 Time Performed: 03:22:57 PTAGE: 68 years EKG: SINUS BRADYCARDIA WITH OCCASIONAL VENTRICULAR PREMATURE COMPLEXES BORDERLINE ECG Compared t o PREVIOUS TRACING , ST-T abnormalities have resolved. PREVIOUS TRACIN10/18/2012 09.20 DOCTOR: Fabian Hamilton Interpretating Date/Time 08/06/2018 11:50:02
[2018-08-06 11:52] LABS: Albumin 3.3 g/dL (3.4-5.0); Glucose,Random 93 mg/dL (74-106)
[2018-08-06 11:53] LABS: Anion Gap 3 meq/L (5-15); Blood Urea Nitrogen 13 mg/dL (7-18); Calcium 8.3 mg/dL (8.5-10.1); Carbon Dioxide 27.7 meq/L (21.0-32.0)
[2018-08-06 11:56] LABS: Alanine Aminotransferase 184 U/L (10-53); Glomerular Filtration Rate 86 mL/min (>89)
[2018-08-06 11:57] LABS: Aspartate Aminotransferase 184 U/L (15-37)
[2018-08-06 11:58] LABS: Alkaline Phosphatase 124 U/L (45-117); Total Protein 6.2 g/dL (6.4-8.2)
[2018-08-06 11:59] LABS: Lipase 1629 U/L (73-393)
[2018-08-06] MEDS ORDERED: Simethicone 80 MG Chew Tablet PO PRN (14:34)
[2018-08-06] MEDS ORDERED: Simethicone 40 MG/0.6 ML Liq Drops 30 ML Bottle PO PRN ×2 (16:14→21:28)
[2018-08-06 18:48] LABS: Hepatitis A IgM Antibody Nonreactive (Nonreactive); Hepatitits B Surface Antigen Nonreactive (Nonreactive)
[2018-08-07] MEDS: Sod Chloride 0.9% Inj 1,000 ML IV.CONT SCH ×2 (05:48→13:16)
[2018-08-07] MEDS: Heparin - SQ 10,000 UNITS/ML Vial SQ SCH (05:48)
[2018-08-07 06:26] LABS: Baso # (Auto) 0.1 th/mm3 (0.0-0.2); Baso % (Auto) 1.5 % (0.0-2.0); Eos # (Auto) 0.1 th/mm3 (0.0-0.4); Hematocrit 36.8 % (35.0-46.0); Hemoglobin 12.3 gm/dL (11.6-15.3); Lymph # (Auto) 4.8 th/mm3 (1.0-4.8); Lymph % (Auto) 69.1 % (9.0-44.0); Mean Corpuscular HGB Conc 33.3 % (32.0-36.0); Mean Corpuscular Hemoglobin 29.6 pg (27.0-34.0); Mean Corpuscular Volume 88.8 fL (80.0-100.0); Mean Platelet Volume 8.5 fL (7.0-11.0); Mono # (Auto) 0.4 th/mm3 (0.0-0.9); Mono % (Auto) 6.1 % (0.0-8.0); Neut # (Auto) 1.4 th/mm3 (1.8-7.7); Neut % (Auto) 21.3 % (16.0-70.0); Platelet Count 168 th/mm3 (150-450); Red Blood Count 4.15 mil/mm3 (4.00-5.30); Red Cell Distribution Width 12.1 % (11.6-17.2); White Blood Count 6.8 th/mm3 (4.0-11.0)
[2018-08-07 06:32] LABS: Chloride 113 meq/L (98-107); Potassium 3.3 meq/L (3.5-5.1); Sodium 143 meq/L (136-145)
[2018-08-07 06:36] LABS: Albumin 2.9 g/dL (3.4-5.0); Glucose,Random 87 mg/dL (74-106)
[2018-08-07 06:37] LABS: Anion Gap 6 meq/L (5-15); Blood Urea Nitrogen 6 mg/dL (7-18); Carbon Dioxide 24.1 meq/L (21.0-32.0)
[2018-08-07 06:38] LABS: Calcium 7.9 mg/dL (8.5-10.1)
[2018-08-07 06:39] LABS: Alanine Aminotransferase 117 U/L (10-53); Aspartate Aminotransferase 72 U/L (15-37); Glomerular Filtration Rate Greater Than 89 mL/min (>89)
[2018-08-07 06:41] LABS: Total Protein 5.4 g/dL (6.4-8.2)
[2018-08-07 06:42] LABS: Alkaline Phosphatase 96 U/L (45-117)
--- NOTE | 2018-08-07 08:45 | P.PNIM ---
Subjective Interval history: 68-year-old female who was seen and examined today for elevated liver enzymes and lipase level possible pancreatitis. Patient is doing much better. Denies any pain. Patient states only she wants is to be able to eat real food. Vital signs are stable. Patient remains afebrile. Physical Exam Vital signs: Vital Signs 08/06/18 12:00 08/06/18 16:00 08/06/18 20:00 Temperature 97.0 F L 97.2 F L 98.1 F Pulse Rate 43 L 46 L 58 L Respiratory Rate 16 16 18 Blood Pressure 124/60 136/99 H 127/60 Pulse Oximetry 96 98 96 08/06/18 23:59 Temperature 97.4 F L Pulse Rate 59 L Respiratory Rate 18 Blood Pressure 133/67 Pulse Oximetry 97 Intake & Output 08/06/18 08/07/18 08/07/18 18:59 06:59 18:59 Intake Total 1959 Balance 1959 Weight 79.8 kg Intake: IV 1000 / 1000 1999 NS Inj 1,000 ML @ 125 mls/hr IV 1000 / 1000 1999 .CONT .Q8H WILBERT Rx#:[id number] Oral 960 / 960 Other: # Voids 4 3 # Bowel Movements 0 Narrative: GENERAL: Well-developed, well-nourished, in no acute distress. alert and orientated HEENT: Head is normocephalic without any lesions or masses noted. Facial features are symmetric. Eyes: Extraocular muscles are intact. Conjunctivae were clear. NECK: Supple without any masses. Trachea midline no deviation. No JVD CARDIAC: Regular rhythm, regular rate. S1/S2 are heard. No murmurs gallops or rubs. LUNGS: Clear to auscultation bilaterally. No wheeze, rhonchi or rales. No use of accessory muscles on inspiration or expiration. ABDOMEN: Soft, nontender. Nondistended. Bowel sounds heard in all 4 quadrants. No organomegaly or masses. Negative rebound, negative guarding EXTREMITIES: No edema, pulses are equal bilaterally. No cyanosis or clubbing NEUROLOGY: Mood and affect appear appropriate. Cranial nerves II through XII grossly intact. Moving all extremities, speech is clear Results Labs CBC & Chem 7: 08/07/18 06:05 08/07/18 06:05 Assessment and Plan (1) Elevated lipase: Code(s): R74.8 - Abnormal levels of other serum enzymes Status: Acute (2) Leukocytosis: Code(s): D72.829 - Elevated white blood cell count, unspecified Status: Acute (3) Abdominal pain: Code(s): R10.9 - Unspecified abdominal pain Status: Acute (4) Nausea & vomiting: Code(s): R11.2 - Nausea with vomiting, unspecified Status: Acute (5) Elevated liver enzymes: Code(s): R74.8 - Abnormal levels of other serum enzymes Status: Acute Plan Abdominal pain with elevated lipase, elevated liver enzymes. Possible pancreatitis CT scan was performed which did not indicate any acute abnormality Patient does have history of cholecystectomy Patient is tolerating clear liquid diet will advance to full liquid diet. Patient wants to eat real food. I counseled patient extensively on that she should advance her diet slowly over the next 3-5 days. Would not recommend eating solid, greasy, fatty foods at this time. Continue IV fluid and pain control Liver enzymes and lipase level have trended down nicely Hepatitis panel was negative Leukocytosis, resolved Could be secondary to dehydration, poor p.o. intake and possible infection Continue monitor CBC Hypertension, hyperlipidemia Continue home medications DVT prevention Subcutaneous heparin Discussed Condition With: Vision, nursing staff, Dr. Landon Discharge Planning: Patient originally anticipated to need at Least 2 midnights for recovery, but overall assessment and status improved faster than expected. Discharge home in stable condition Activity: Ad steven. Diet: Healthy heart diet Medication per medication reconciliation Follow-up with primary medical doctor in 1 week Progress Note: Quality VTE Deep Vein Thrombosis/Pulmonary Embolism Present on Admission: No
[2018-08-07] MEDS: Senna/Docusate Sodium 8.6/50 MG Tablet PO SCH (10:11)
[2018-08-07] MEDS: Metoprolol Tartrate 50 MG Tablet PO SCH (10:52)
== END 2018-08-07 14:30 | disposition home or self-care (01) | DRG 440 ==
LOC: PHED 03:08 → PHEDA 05:30 → PH3 06:48
PROVIDERS: ADMIT Hospitalist; ATTEND Hospitalist
DX: K85.90 Acute pancreatitis without necrosis or infection, unspecified; J44.9 Chronic obstructive pulmonary disease, unspecified; Z87.891 Personal history of nicotine dependence; Z79.82 Long term (current) use of aspirin; E78.5 Hyperlipidemia, unspecified; I10 Essential (primary) hypertension; Z91.040 Latex allergy status
CPT/HCPCS: 71010; 71045; 74177; 80053; 80074; 81001; 82550; 83605; 83690; 83735; 84484; 85025; 85610; 85730; 87086; 90761; 90774; 90775; 93005; 96361; 96374; 96375; 99285; C8952; J1644; J1885; J2405; J7030; Q9967